=== PATIENT | male | born 1985 | race Caucasian/White ===

== ENCOUNTER 2020-09-26 23:39 | Emergency (ER) | payer SELFPAY ==
[~2020-09-26] VITALS: Ht 175.3 cm; Wt 70.5 kg
--- NOTE | 2020-09-26 23:43 | PHYS DOC ---
Past History Past Medical History: Bronchitis, COPD, Seizure Smoking: Cigarettes General Adult HPI: HPI: ".. Maybe I had a seizure... 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 I did miss some of my seizure... meds..." Patient is a 34 year old male inmate from [facility] who presents with above hx and complaints of tonic clonic seizure. Pt. reports missed dosage s of Keppra. Patient denies any recent trauma. Denies any history of fever or chills. No recent travel. Patient denies any history immunosuppression. Patient does have a past medical history of polysubstance abuse. Patient reportedly was postictal after a tonic-clonic seizure. Did exhibit some combative behavior afterwards but his confusion promptly cleared. Review of Systems: Review of Systems: Constitutional: Denies fever or chills Eyes: Denies change in visual acuity HENT: Denies nasal congestion or sore throat Respiratory: Denies cough or shortness of breath Cardiovascular: Denies chest pain or edema GI: Denies abdominal pain, nausea, vomiting, bloody stools or diarrhea : Denies dysuria Musculoskeletal: Denies back pain or joint pain Integument: Denies rash Neurologic: Denies headache, focal weakness or sensory changes. History of a tonic-clonic seizure Endocrine: Denies polyuria or polydipsia Lymphatic: Denies swollen glands Psychiatric: Denies depression or anxiety Family History: Family History: Noncontributory to presentation Current Medications: Current Meds: See nursing for home meds Allergies: Allergies: No known drug allergies Physical Exam: PE: Constitutional: no acute distress, non-toxic appearance. [] HENT: Normocephalic, atraumatic, bilateral external ears normal, oropharynx moist, no oral exudates, nose normal. Multiple tattoos Eyes: PERRLA, EOMI, conjunctiva normal, no discharge. [] Neck: Normal range of motion, no tenderness, supple, no stridor. [] Cardiovascular: Tachycardia heart rate regular rhythm, no murmur [] Lungs & Thorax: Bilateral breath sounds equal apex scattered wheezes on auscultation [] Abdomen: Bowel sounds normal, soft, no tenderness, no masses, no pulsatile masses. [] Skin: Warm, dry, no erythema, no rash. Multiple tattoos Back: No tenderness, no CVA tenderness. [] Extremities: No tenderness, no cyanosis, no clubbing, ROM intact, no edema. No cording appreciated Neurologic: Alert and oriented X 3, moves all extremities on request, does have distal sensory, first appeared to be somewhat postictal but this cleared promptly while in the emergency department., no focal deficits noted. DTRs +2 patella and brachial. Senior Quality Control Inspector equal. No drift. Psychologic: Affect normal, judgement normal, mood normal. [] EKG: EKG: My interpretation EKG shows a sinus tachycardia 102 bpm left axis. No findings acute STEMI of contralateral changes time EKG is 2356 [] Radiology/Procedures: Radiology/Procedures: [][address] [address] IMAGING REPORT Signed PATIENT: URI LAIRD ACCOUNT: [id number] : 1985 LOCATION: ER AGE: 34 SEX: M EXAM STATUS: REG ER ORD. PHYSICIAN: HARSH LOONEY MD REASON: sz PROCEDURE: CT HEAD AND CERVICAL SPINE WO EXAM: 1. CT HEAD WITHOUT CONTRAST. 2. CT CERVICAL SPINE WITHOUT CONTRAST. HISTORY: Seizure, trauma. TECHNIQUE: Computed tomography of the head and cervical spine was performed without intravenous contrast. One or more of the following individualized dose reduction techniques were utilized for this examination: 1. Automated exposure control. 2. Adjustment of the mA and/or kV according to patient size. 3. Use of iterative reconstruction technique. COMPARISON: None. FINDINGS: There is no intracranial hemorrhage. Fraser-white differentiation is preserved. The ventricles are normal in size and position. The visualized paranasal sinuses appear clear. The orbits are unremarkable. The temporal bones are unremarkable. The calvarium reveals no suspicious lesions. Alignment is maintained. The craniocervical junction is unremarkable. No fractures are identified. The tip of the T1 spinous process is not unified, likely developmentally. Degenerative disc disease is mild from C5 through C7. There is no prevertebral soft tissue swelling. At C2-3, there is no significant stenosis. At C3-4, uncovertebral osteoarthritis is mild on the right. Right neural foraminal stenosis is moderate. At C4-5, there is no stenosis. At C5-6, there is a small posterior disc bulge. There is mild right foraminal narrowing. At C6-7, there is a moderate posterior disc-osteophyte complex. Uncovertebral osteoarthritis is moderate on the left. Left neural foraminal stenosis is mild. There is moderate centrilobular emphysema in the apices. IMPRESSION: 1. No acute intracranial findings. 2. No cervical fracture or malalignment. 3. Moderate centrilobular emphysema is advanced for patient age. Electronically signed by: Nico Kim MD (09/27/2020 2:43 AM) [facility] DICTATED AND SIGNED BY: URI KIM MD DATE: 09/27/209 CC: HARSH LOONEY MD; PCP,NO ~MTH0 0 Heart Score: C/O Chest Pain: No HEART Score for Chest Pain: HEART Score for Chest Pain Response (Comments) Value History Slighlty/Non-Suspicious 0 ECG Normal 0 Age < 45 0 Risk Factors 1 or 2 Risk Factors 1 Troponin < Normal Limit 0 Total 1 Risk Factors: Risk Factors: DM, Current or recent (<one month) smoker, HTN, HLP, family history of CAD, obesity. Risk Scores: Score 0 - 3: 2.5% MACE over next 6 weeks - Discharge Home Score 4 - 6: 20.3% MACE over next 6 weeks - Admit for Clinical Observation Score 7 - 10: 72.7% MACE over next 6 weeks - Early Invasive Strategies Course & Med Decision Making: Course & Med Decision Making Pertinent Labs and Imaging studies reviewed. (See chart for details) Patient practice her seizure precautions. Do not drive vehicle. Prior to hazardous activity keep follow-up with primary care and neurology. Take seizure meds as previous directed. Follow-up as essential. Impression: 1. History of tonic-clonic seizure- 2. History of noncompliance with seizure meds 3. Emphysema 4. Cervical degenerative joint changes. [] Dragon Disclaimer: Dragon Disclaimer: This electronic medical record was generated, in whole or in part, using a voice recognition dictation system. Dragon Disclaimer This chart was dictated in whole or in part using Voice Recognition software in a busy, high-work load, and often noisy Emergency Department environment. It may contain unintended and wholly unrecognized errors or omissions. Dragon Disclaimer This chart was dictated in whole or in part using Voice Recognition software in a busy, high-work load, and often noisy Emergency Department environment. It may contain unintended and wholly unrecognized errors or omissions. HARSH LOONEY MD Sep 26, 2020 23:43
[2020-09-26] MEDS ORDERED: LORazepam 1 MG TABLET PO ONE (23:45)
--- NOTE | 2020-09-27 00:22 | EKG ---
[address] [address] Test Date: 2020-09-26 Test Time: 23:56:08 Pat Name: URI LAIRD Department: Room: Gender: M Regional Marketing Manager: ARMANDO : 1985 Requested By: HARSH LOONEY Order Number: [id number] Reading MD: Measurements Intervals [place] Rate: 102 P: 48 [place]: 126 QRS: -26 QRSD: 98 T: 29 QT: 324 QTc: 426 Interpretive Statements SINUS TACHYCARDIA LEFTWARD AXIS OTHERWISE NORMAL ECG RI6.02 No previous ECG available for comparison
[2020-09-27] MEDS ORDERED: levETIRAcetam 500 MG/5 ML VIAL IV ONE (00:27)
[2020-09-27] MEDS ORDERED: IV NORMAL SALINE 100ML 100 ML ONE (00:27)
[2020-09-27 01:26] LABS: BASO % 0 % (0-3); EOS # 0.2 x10^3/uL (0.0-0.7); EOS % 2 % (0-3); HEMATOCRIT 41.8 % (39.0-53.0); HEMOGLOBIN 13.9 g/dL (13.0-17.5); LYMPH # 2.2 x10^3/uL (1.0-4.8); LYMPH % 22 % (24-48); MEAN CORPUSCULAR HEMOGLOBIN 30 pg (25-35); MEAN CORPUSCULAR HGB CONC 33 g/dL (31-37); MEAN CORPUSCULAR VOLUME 92 fL (79-100); MONO # 0.7 x10^3/uL (0.0-1.1); MONO % 7 % (0-9); NEUT % 70 % (31-73); PLATELET COUNT 153 x10^3/uL (140-400); RED BLOOD COUNT 4.56 x10^6/uL (4.30-5.70); RED CELL DISTRIBUTION WIDTH 13.3 % (11.5-14.5)
[2020-09-27 01:45] LABS: CREATININE 0.9 mg/dL (0.7-1.3); POTASSIUM 3.8 mmol/L (3.5-5.1)
--- NOTE | 2020-09-27 02:45 | RAD ---
EXAM: 1. CT HEAD WITHOUT CONTRAST. 2. CT CERVICAL SPINE WITHOUT CONTRAST. HISTORY: Seizure, trauma. TECHNIQUE: Computed tomography of the head and cervical spine was performed without intravenous contr ast. One or more of the following individualized dose reduction techniques were utilized for this exa mination: 1. Automated exposure control. 2. Adjustment of the mA and/or kV according to patient size. 3. Use of iterative reconstruction technique. COMPARISON: None. FINDINGS: There is no intracranial hemorrhage. Fraser-white differentiation is preserved. The ventricl es are normal in size and position. The visualized paranasal sinuses appear clear. The orbits are unremarkable. The temporal bones are un remarkable. The calvarium reveals no suspicious lesions. Alignment is maintained. The craniocervical junction is unremarkable. No fractures are identified. Th e tip of the T1 spinous process is not unified, likely developmentally. Degenerative disc disease is mild from C5 through C7. There is no prevertebral soft tissue swelling. At C2-3, there is no significant stenosis. At C3-4, uncovertebral osteoarthritis is mild on the right. Right neural foraminal stenosis is modera te. At C4-5, there is no stenosis. At C5-6, there is a small posterior disc bulge. There is mild right foraminal narrowing. At C6-7, there is a moderate posterior disc-osteophyte complex. Uncovertebral osteoarthritis is moder ate on the left. Left neural foraminal stenosis is mild. There is moderate centrilobular emphysema in the apices. IMPRESSION: 1. No acute intracranial findings. 2. No cervical fracture or malalignment. 3. Moderate centrilobular emphysema is advanced for patient age. Electronically signed by: Nico Kim MD (09/27/2020 2:43 AM) [facility]
[2020-09-27 05:40] VITALS: BP 136/66
--- NOTE | 2020-09-27 06:38 | RAD ---
EXAM: CHEST ONE VIEW. HISTORY: Tachycardia, wheezing. COMPARISON: None. FINDINGS: A frontal view of the chest is obtained. There are no confluent infiltrates. There is no pneumothorax or pleural effusion. The heart is not en larged. IMPRESSION: 1. No confluent infiltrates. Electronically signed by: Nico Kim MD (09/27/2020 6:36 AM) [facility]
== END 2020-09-27 05:48 | disposition home or self-care (01) ==
LOC: ER 23:39
DX: R56.9 Unspecified convulsions (principal); J43.9 Emphysema, unspecified; F17.210 Nicotine dependence, cigarettes, uncomplicated; Z91.14 Patient's other noncompliance with medication regimen
CPT/HCPCS: 36415; 70450; 71045; 72125; 80048; 82550; 84484; 85025; 93005; 96365; 99285; J1953